=== PATIENT | female | born 1995 | race Caucasian/White ===

== ENCOUNTER 2016-08-05 14:40 | Emergency (ER) | payer OTHER ==
[2016-08-05 15:25] VITALS: RESP 16
[2016-08-05 15:30] LABS: % IMMATURE GRANULYOCYTES 0.6 % (0.0-1.1); ABSOLUTE IMMATURE GRANULOCYTES 0.07 10^3/uL (0.00-0.10); ADD DIFF? NO; ADD MORPH? NO; ADD SCAN? NO; ATYPICAL LYMPHOCYTE FLAG 0 (0-99); FRAGMENT RBC FLAG 0 (0-99); HEMOGLOBIN 12.6 g/dL (12.6-16.3); LEFT SHIFT FLG 0 (0-99); LIPEMIA HEMOLYSIS FLAG 90 (0-99); MEAN CELL HEMOGLOBIN 30.6 pg (27.9-34.1); MEAN CELL VOLUME 87.4 fL (81.5-99.8); MEAN PLATELET VOLUME 9.7 fL (8.7-11.7); PLATELET CLUMPS FLAG 0 (0-99); PLATELET COUNT 236 10^3/uL (150-400); RED BLOOD CELL COUNT 4.12 10^6/uL (4.18-5.33); RED CELL DISTRIBUTION WIDTH 12.4 % (11.5-15.2)
--- NOTE | 2016-08-05 15:34 | EDPHY ---
HPI/HX/ROS/PE/MDM Narrative: CHIEF COMPLAINT: Lethargy, fever HISTORY OF PRESENT ILLNESS: This patient is a 21 year old female with history of toxic shock complaining of fever, aches and pains, headache, and nausea onset today. She states she woke feeling "extreme" lethargy this morning, and developed the other symptoms progressively throughout the day. She endorses sore throat She reports he took 800mg around 8:00 this morning to relieve her symptoms. She states she had toxic shock four years ago, and her symptoms at that time felt similar to today. She reports she had a medical 3 weeks ago, with an oral pill at [facility]. She denies ectopic , prior pregnancies, miscarriages, cramping, or vaginal bleeding. She denies history of UTI or pyelonephritis, and denies any abnormalities in her urination. She denies history of frequent strep pharyngitis. No chest pain, shortness of breath, palpitations, vomiting, diarrhea, urinary complaints, or lightheadedness. REVIEW OF SYSTEMS: Aside from elements discussed in the HPI, a comprehensive 10-point review of systems was reviewed and is negative. PAST MEDICAL HISTORY: Toxic shock SOCIAL HISTORY: Friends at bedside. VITAL SIGNS: Reviewed by me GENERAL: Well-developed, well-nourished, resting comfortably in no respiratory distress. HEENT: Atraumatic. Eyes: No icterus, no injection. Mouth: Erythematous. Tonsil hypertrophy bilaterally with discharge in crypts. Neck: supple with no adenopathy. LUNGS: Clear to auscultation bilaterally, no wheezes, rhonchi or rales. CARDIAC: Tachycardic. Regular rate and rhythm, no rubs, murmurs or gallops. ABDOMEN: Suprapubic tenderness. Soft, nondistended, bowel sounds normal. BACK: Left flank tenderness. EXTREMITIES: No trauma. No edema. Range of motion is normal throughout. NEURO: Alert and oriented, grossly nonfocal. SKIN: Warm and dry, no rash. PSYCHIATRIC: Normal mentation, no agitation. Portions of this note were transcribed by a bio medical technician. I personally performed a history, physical exam, medical decision making, and confirmed accuracy of information the transcribed note. ED Course: This patient is a 21 year old female with history of toxic shock presenting today with sore throat, lethargy, headache, and nausea. Physical exam reveals erythematous throat with bilateral tonsil hypertrophy with discharge in the crypts. Throat swabbed. Plan to order labs including CBC, CHEM, BHCG, PTPTT, and UA. Plan for chest x- ray. Throat swab positive for Strep A. Labs show elevated white count, but the patient does not meet criteria for toxic shock at this time. Chest x-ray read by Dr. Agee, radiologist. Mild peribronchial thickening suggesting airways disease/bronchitis. 16:59 Reassessed patient. Discussed lab results. Plan to discharge home in good condition. Strict return precautions discussed. The patient is comfortable with this plan. MDM: Differential diagnosis for fever in adults was considered including but not limited to pneumonia, strep throat, urinary tract infection, mononucleosis, viral syndrome, and influenza. - Data Points Imaging: I viewed and interpreted images myself Laboratory Results: Laboratory Results 08/05/16 15:01 08/05/16 15:01 Medications Given: Discontinued Medications Ibuprofen (Motrin) 600 mg PO EDNOW ONE Stop: 08/05/16 16:12 Last Admin: 08/05/16 16:11 Dose: 600 mg General Time Seen by Provider: 08/05/16 15:18 Initial Vital Signs: Initial Vital Signs Temperature (C) 37.5 C 08/05/16 14:43 Heart Rate 122 H 08/05/16 14:43 Respiratory Rate 20 08/05/16 14:43 Blood Pressure 106/64 08/05/16 14:43 O2 Sat (%) 99 08/05/16 14:43 O2 Delivery Mode Room Air Allergies/Adverse Reactions: No Known Allergies Allergy (Unverified 08/05/16 14:42) Home Medications: Medication Instructions Recorded Amoxicillin 500 mg PO BID #20 capsule 08/05/16 Departure - Departure Disposition: Home, Routine, Self-Care Clinical Impression: Strep pharyngitis Fever Qualifiers: Fever type: unspecified Qualified Code(s): R50.9 - Fever, unspecified Condition: Good Instructions: Strep Throat (ED) Additional Instructions: 1. Take your Amoxicillin as prescribed for the next 10 days. It is important that you finish your entire course of antibiotics. 2. You may take Ibuprofen or Tylenol as needed for pain or fever as directed below. 3. Follow up with a primary care provider for symptoms unresolved in the next few days. We have referred you to our primary care physician master sonar technician but you may follow up with your regular physician if you have one. Adult Pain & Fever Control: We recommend Acetaminophen (Tylenol) and Ibuprofen (Motrin,Advil) for pain and fever control. When fever is high or pain severe, both drugs can be used at the same time, but at different intervals. Please note the time differences. Your dose is: Acetaminophen 650-1000 mg every 4 to 6 hours Ibuprofen 600mg every 8 hours with food No more than 3000mg of Acetaminophen should be taken in 24 hours (for an adult) . There is no indication of a toxic shock syndrome at this point. Your liver function tests, platelets, kidney functions, and your blood pressure is normal. There is no rash. If you are worsening despite the above treatment, please return to the emergency department or follow up with your primary care physician. Referrals: NONE *PRIMARY CARE P,. [Primary Care Provider] - As per Instructions Belinda Walker MD [Medical Doctor] - As per Instructions Prescriptions: Amoxicillin 500 mg PO BID #20 capsule Report Scribed for: Traci Rudd Report Scribed by: Susi Nick Date of Report: 08/05/16 Time of Report: 16:40
[2016-08-05 15:37] LABS: ALANINE AMINOTRANSFERASE 24 IU/L (9-52); ALBUMIN 4.5 g/dL (3.5-5.0); ALKALINE PHOSPHATASE 77 IU/L (38-126); ANION GAP 14 mEq/L (8-16); ASPARTATE AMINOTRANSFERASE 20 IU/L (14-46); BILIRUBIN,TOTAL 1.2 mg/dL (0.1-1.4); CALCIUM 9.4 mg/dL (8.5-10.4); CARBON DIOXIDE 21 mEq/l (22-31); CHLORIDE 103 mEq/L (97-110); CREATININE 0.7 mg/dL (0.6-1.0); GLOMERULAR FILTRATION RATE > 60; GLUCOSE 97 mg/dL (70-100); POTASSIUM 3.6 mEq/L (3.5-5.2); SODIUM 138 mEq/L (134-144); TOTAL PROTEIN 7.5 g/dL (6.3-8.2)
[2016-08-05 16:04] LABS: INR 1.05 (0.83-1.16); PROTIME(PATIENT) 13.6 SEC (12.0-15.0)
[2016-08-05 16:05] LABS: APTT 29.6 SEC (23.0-38.0)
[2016-08-05 16:07] LABS: ALANINE AMINOTRANSFERASE 24 IU/L (9-52); ALBUMIN 4.3 g/dL (3.5-5.0); ALKALINE PHOSPHATASE 76 IU/L (38-126); ASPARTATE AMINOTRANSFERASE 20 IU/L (14-46); BILIRUBIN,TOTAL 1.2 mg/dL (0.1-1.4); BILIRUBIN-CONJUGATED 0.4 mg/dL (0.0-0.5); BILIRUBIN-UNCONJUGATED 0.8 mg/dL (0.0-1.1); TOTAL PROTEIN 7.4 g/dL (6.3-8.2)
[2016-08-05] MEDS ORDERED: IBUPROFEN 600 MG TAB PO ONE ×2 (16:09→16:11)
[2016-08-05 17:06] VITALS: BP 114/75; PULSE 110; TEMP 101.1; O2SAT 96
== END 2016-08-05 17:06 | disposition home or self-care (01) ==
DX: J02.0 Streptococcal pharyngitis (principal)